=== PATIENT | female | born 1945 | race Caucasian/White ===

== ENCOUNTER → 2019-05-02 | Outpatient (CLI) | payer MEDICARE | LOC: LAB FS 15:53 | PROVIDERS: ATTEND Ophthalmology | DX: H11.009 Unspecified pterygium of unspecified eye (principal) ==

== ENCOUNTER → 2019-08-22 | Outpatient (CLI) | payer MEDICARE | LOC: LAB FS 16:01 | PROVIDERS: ATTEND Ophthalmology | DX: H11.009 Unspecified pterygium of unspecified eye (principal) ==